=== PATIENT | male | born 1980 | race African-American/Black ===

== ENCOUNTER 2024-02-05 05:45 | Emergency (ER) | payer MEDICAID ==
[~2024-02-05] VITALS: Ht 177.8 cm; Wt 106.0 kg
[2024-02-05 05:53] VITALS: O2SAT 100
[2024-02-05] MEDS ORDERED: TOPUD PO (08:38)
[2024-02-05] MEDS: FLUORESCEIN SODIUM 1MG/STRIP LEFTEYE ONE (09:15)
[2024-02-05] MEDS ORDERED: FLUORESCEIN SODIUM 1MG/STRIP LEFTEYE ONE (09:30)
[2024-02-05] MEDS: TETRACAINE 0.5% OPHTH DROPS 4ML LEFTEYE ONE (09:45)
[2024-02-05] MEDS ORDERED: OCUFLX LEFTEYE (10:02)
[2024-02-05 11:03] VITALS: BP 145/91; PULSE 81; RESP 16; TEMP 98.4
== END 2024-02-05 12:52 | disposition home or self-care (01) ==
LOC: ER 05:45
DX: S00.212A Abrasion of left eyelid and periocular area, initial encounter (principal); R51.9 Headache, unspecified; Z98.890 Other specified postprocedural states; V49.9XXA Car occupant (driver) (passenger) injured in unspecified traffic accident, initial encounter; Y93.89 Activity, other specified; Y92.89 Other specified places as the place of occurrence of the external cause; Y99.8 Other external cause status; I10 Essential (primary) hypertension
CPT/HCPCS: 70486; 76512; 99284